=== PATIENT | male | born 1970 | race Caucasian/White ===

== ENCOUNTER → 2020-04-16 | Day surgery (SDC) | payer BC ==
[2020-04-16] VITALS (8 sets, daily range): BP systolic 89–124; BP diastolic 40–76
[~2020-04-16] VITALS: Ht 184.2 cm; Wt 90.7 kg
[~2020-04-16] MED LIST: LR 1000ml ONE; Lidocaine 1% MPF 10mg/ml 5ml ONE
--- NOTE | 2020-04-16 07:59 | Anethesia Preoperative Eval ---
Anesthesia Pre-op PMH/ROS General Date of Evaluation: Apr 16, 2020 Time of Evaluation: 07:58 Anesthesiologist: bj ASA Score: ASA 1 Mallampati Score Class I : Soft palate, uvula, fauces, pillars visible Class II: Soft palate, uvula, fauces visible Class III: Soft palate, base of uvula visible Class IV: Only hard plate visible Mallampati Classification: Class II Surgeon: fracisco Diagnosis: screening Surgical Procedure: Colonoscopy Anesthesia History: none Family History: no anesthesia problems Allergies: Coded Allergies: No Known Allergies (Unverified , 04/16/20) Medications: see eMAR Patient NPO?: Yes NPO Date: Apr 16, 2020 NPO Time: 00:01 Past Medical History Cardiovascular: Denies: HTN, CAD, PA, valve dz, arrhythmia, other Pulmonary: Denies: asthma, COPD, BILL, other Gastrointestinal/Genitourinary: Denies: GERD, CRI, ESRD, other Neurologic/Psychiatric: Denies: dementia, CVA, depression/anxiety, TIA, other HEENT: Denies: cataract (L), cataract (R), glaucoma, SENECA-CAYUGA (L), SENECA-CAYUGA (R), other Hematology/Immune: Denies: anemia, DVT, bleeding disorder, other Musculoskeletal/Integumentary: Denies: OA, RA, DJD, DDD, edema, other PSxH Narrative: none Anesthesia Pre-op Phys. Exam Physician Exam Last Vital Signs Date Time Temp Pulse Resp B/P (MAP) Pulse Ox O2 Delivery O2 Flow Rate FiO2 04/16/20 07:31 Room Air 04/16/20 07:24 97.0 63 20 124/76 97 Constitutional: NAD Neurologic: CN 2-12 intact Cardiovascular: RRR Respiratory: CTA Gastrointestinal: S/NT/ND Airway Exam Mallampati Classification 2 Mallampati Score: Class II MO: full ROM: full Dentures: no upper, no lower Anesthesia Pre-op A/P Studies Pre-op Studies: EKG - SR Risk Assessment & Plan Assessment: covid neg Plan: MAC Status Change Before Surgery: No Pre-Antibiotics Drug: none Renae Nguyễn CRNA Apr 16, 2020 07:59
--- NOTE | 2020-04-16 08:02 | Short Stay Surgery H&P ---
History of Present Illness History of Present Illness Chief Complaint see H&P HPI Ron Overton is a 49 year old male who was admitted on for Colon Screening Patient History Allergies: Coded Allergies: No Known Allergies (Unverified , 04/16/20) Physical Exam Vital Signs Last Vital Signs Date Time Temp Pulse Resp B/P (MAP) Pulse Ox O2 Delivery O2 Flow Rate FiO2 04/16/20 07:31 Room Air 04/16/20 07:24 97.0 63 20 124/76 97 Plan Attestation Are the patient's medical conditions optimized for surgery? Anjelica Rodriguez MD Apr 16, 2020 08:02
--- NOTE | 2020-04-16 08:02 | Pre-Procedure Note/Attestation ---
Pre-Procedure Note/Attestation Complete Prior to Procedure Planned Procedure: not applicable Procedure Narrative: screening colon Indications for Procedure Pre-Operative Diagnosis: screening Attestation I attest that I discussed the nature of the procedure; its benefits; risks and complications; and alternatives (and the risks and benefits of such alternatives), prior to the procedure, with the patient (or the patient's legal customer service representative teller). I attest that, if there was a reasonable possibility of needing a blood transfusion, the patient (or the patient's legal customer service representative teller) was given the [facility] standardized written summary, pursuant to the Karsten Lan Blood Safety Act ([place] Health and Safety Code # 1645, as amended). I attest that I re-evaluated the patient just prior to the surgery and that there has been no change in the patient's H&P, except as documented below: Anjelica Rodriguez MD Apr 16, 2020 08:02
--- NOTE | 2020-04-16 08:43 | Immediate Post-Op Evaluation ---
Immediate Post-Op Evalulation Immediate Post-Op Evalulation Procedure: colonoscopy Date of Evaluation: Apr 16, 2020 Time of Evaluation: 08:41 IV Fluids: 750 Blood Pressure Systolic: 96 Blood Pressure Diastolic: 45 Pulse Rate: 53 Respiratory Rate: 14 O2 Sat by Pulse Oximetry: 99 Temperature (Fahrenheit): 97.3 Nausea: No Vomiting: No Patient Status: awake, reacts, patent Hydration Status: adequate Drug: none MakennariRenae walter CRNA Apr 16, 2020 08:42
--- NOTE | 2020-04-16 10:03 | 48 Hour Post Anesthesia Eval ---
Post Anesthesia Evaluation Procedure: colonoscopy Date of Evaluation: Apr 16, 2020 Time of Evaluation: 10:03 Blood Pressure Systolic: 107 0: 61 Pulse Rate: 60 Respiratory Rate: 14 O2 Sat by Pulse Oximetry: 98 Airway: patent Nausea: No Vomiting: No Hydration Status: adequate Cardiopulmonary Status: stable Mental Status/LOC: patient returned to baseline Post-Anesthesia Complications: none Follow-up care needed: N/A Renae Nguyễn CRNA Apr 16, 2020 10:03
--- NOTE | 2020-04-16 10:39 | Endoscopy Procedure Note ---
Endoscopy Procedure Note General Indication for Procedure: screening Procedures Performed: colonoscopy Operative Findings/Diagnosis: polyps, tics Specimen: yes Pt Tolerated Procedure Well: Yes Estimated Blood Loss: none Anesthesia Anesthesiologist: MELA Anesthesia: MAC Medications Medication Given: see anesthesia record Inserted Devices Implant(s) used?: No GI Core Measures 50 yrs or older w/o bx or poly: No 10yrs. F/U recommended: No If not recommended, why?: Above average risk 18 years or older w/prev. colo: No <3yrs. since last colonoscopy: No Med reason:<3 yrs.: System Reason:<3 yrs.: Last colonoscopy >= to 3yrs: Yes Anjelica Rodriguez MD Apr 16, 2020 10:39
--- NOTE | 2020-04-16 10:40 | Brief Operative Note ---
Immediate Post Operative Note Operative Note Chief Complaint: screen Pre-op Diagnosis: screening Procedure: colon, bx , SN Post-op Diagnosis: colon polyps, diverticulosis Anesthesiologist: yes Anesthesia: moderate sedation Specimen: yes Complications: none Condition: stable Fluids: per FOOD SAMPLER Implant(s) used?: No Anjelica Rodriguez MD Apr 16, 2020 10:40
--- NOTE | 2020-04-16 11:00 | Operative Note - Dictated ---
DATE OF OPERATION: 04/16/2020 GASTROENTEROLOGY PROCEDURE REPORT PROCEDURE: Colonoscopy with biopsy and snare polypectomy. SURGEON: Anjelica Rodriguez MD. ANESTHESIA: Please see the separate anesthesiologist notes for details. PRE-ENDOSCOPIC DIAGNOSIS: Screening colonoscopy. POST-ENDOSCOPIC DIAGNOSES: 1. Normal terminal ileum for about 10 cm. 2. Diminutive colon polyp in the transverse colon, status post biopsy removal. 3. Mild left-sided diverticulosis. 4. Three diminutive polyps seen in the proximal rectum, which were all biopsied. 5. Four polyps seen in the distal rectum, three of which were removed with biopsy forceps and the fourth one, which was about 5 mm, was removed with cold snare polypectomy. PROCEDURE IN DETAIL: The procedure, its risks, indications, alternatives, and possible complications were explained to the patient and informed consent was obtained. The patient was then sedated in the left lateral decubitus position and a rectal exam was done, which was unremarkable. The colonoscope was then introduced into the rectum and advanced to 10 cm into the terminal ileum. The colonoscope was then gradually withdrawn and mucosa examined carefully. Findings and procedures are as listed above. Retroflexed view of the rectum was otherwise unremarkable. The colonoscope was removed. The patient was sent to recovery in good condition. COMPLICATIONS: None. RECOMMENDATIONS: 1. Follow biopsy results. 2. High fiber diet. 3. Outpatient followup. 4. Next surveillance colonoscopy based upon evaluation of pathology results. Thank you for asking me to participate in the care of this patient. Anjelica Rodriguez M.D. DR: ZHENG JOB#: [id number] CC: Alexei Wilks MD.
== END | disposition home or self-care (01) ==
LOC: GAS 06:57
DX: Z12.11 Encounter for screening for malignant neoplasm of colon (principal); K63.5 Polyp of colon; K57.90 Diverticulosis of intestine, part unspecified, without perforation or abscess without bleeding; K62.1 Rectal polyp; D12.7 Benign neoplasm of rectosigmoid junction; D12.3 Benign neoplasm of transverse colon
CPT/HCPCS: 45380; 45385; 94003; J2704; J7120; U0004; 94150